=== PATIENT | female | born 1975 | race Caucasian/White ===

== ENCOUNTER 2018-02-21 14:21 | Emergency (ER) | payer OTHER ==
[~2018-02-21] VITALS: Ht 162.6 cm; Wt 72.6 kg
[~2018-02-21 14:21] MED LIST: IBUPROFEN600 MG ORAL; LISINOPRIL10 MG ORAL; METRONIDAZOLE500 MG PO; NKM; NORCO 5-325 TA1 EACH ORAL; TRAMADOL HCL50 MG ORAL; TRAZODONE HCL150 MG ORAL
[2018-02-21 14:43] VITALS: BP 135/86
--- NOTE | 2018-02-21 14:43 | Emergency Room Report ---
History of Present Illness General Chief Complaint: Abdominal Pain Source: Patient Present Illness HPI 42 yo female patient presents to ER complaining of crampy lower abdominal pain. Denies radiation of pain. Denies ; reports hx of two abortions at 18yo and 20yo. Denies recent sexual contact. Reports today is first day of menstrual cycle. Previous menstrual cycles normal for her, no excessive bleeding. Denies hx of STI. Reports previously seen by PCP for similar sx and had US performed 1 week ago; does not have followup appointment scheduled for results. Reports they found a pelvic mass on PE. Reports currently taking Ibuprofen today, last dosage this morning. Denies hematuria, dysuria, discharge. Denies fever, chest pain, SOB, calf pain, BRITO, vision changes, nausea, vomiting. Allergies: Coded Allergies: No Known Allergies (Unverified , 01/08/13) Patient History Past Medical History: see triage record Last Menstrual Period: 3-1 Now: No Reviewed Nursing Documentation: PMH: Agreed; PSxH: Agreed Nursing Documentation-PMH Past Medical History: No History, Except For Hx Hypertension: Yes Review of Systems All Other Systems: negative except mentioned in HPI Physical Exam Vital Signs Date Time Temp Pulse Resp B/P (MAP) Pulse Ox O2 Delivery O2 Flow Rate FiO2 02/21/18 14:33 98.5 72 18 135/86 98 Room Air 98.4 Sp02 EP Interpretation: reviewed, normal General Appearance: well appearing, no apparent distress, alert, GCS 15, non- toxic Head: normocephalic, atraumatic Eyes: bilateral eye normal inspection, bilateral eye PERRL ENT: hearing grossly normal, normal pharynx, no angioedema, normal voice, uvula midline, moist mucus membranes Neck: full range of motion Respiratory: lungs clear, normal breath sounds, no rhonchi, no respiratory distress, no accessory muscle use, no wheezing, speaking full sentences Cardiovascular #1: regular rate, rhythm, no edema Gastrointestinal: soft, no mass, non-distended, no guarding, no rebound, tenderness - suprapubic, RLQ, other - negative Rovsing, negative obturator, negative Olivo Genitourinary: no CVA tenderness, deferred Musculoskeletal: back normal, digits/nails normal, gait/station normal, normal range of motion, non-tender Neurologic: alert, oriented x3, responsive, motor strength/tone normal, sensory intact Psychiatric: mood/affect normal Skin: no rash Lymphatic: no adenopathy Medical Decision Making PA Attestation Dr. Dubose is my supervising Physician whom patient management has been discussed with. Diagnostic Impression: Primary Impression: Uterine fibroid Additional Impressions: Renal cyst Nabothian cyst ER Course Pt presents to ED c/o lower abdominal pain. DDX considered but are not limited to menstrual period, UTI, , ovarian cyst, torsion, appendicitis. PE: LLQ pain and suprapubic pain, no mass palpable. Will order imaging. Low suspicion for appendicitis, negative Rovsing, negative Obturator. Pelvic deferred. VITAL SIGNS are WNL, patient is afebrile Ordered CBC, CMP, Type and Screen, UA, UCG, bHCG, IV NS and pelvic and abdominal US. Pain medication. ER COURSE: Patient resting comfortably, in no acute distress, nontoxic appearing. Patient reports pain symptoms resolved since onset following administration of medication. CBC and CMP no elevation in WBC or LFTS, mild elevation of blood glucose, followup with PCP for further evaluation. Lipase WNL UA results no nitrites or leukocyte esterase, no UTI, microscopic hematuria present. Followup with PCP. Urine negative. BetaHCG 1, no . Rh antibody negative Blood type A+ Results discussed with patient. Informed patient to take Tylenol only for pain symptoms, do not take Motrin/ Ibuprofen if ever concerned for . US abdomen shows no acute disease, renal cyst incidental finding. US pelvis shows no acute disease, shows uterine fibroid, nabothian cyst, right paraovarian cyst, small cyst adjacent to left ovary, free fluid. Does not require immediate ER intervention at this time. Reports provided to patient. Discussed results with patient. Instructed to followup with OBGYN. F/u with OBGYN for further diagnosis, treatment and monitoring. DISCHARGE: -Rx provided for Tylenol for pain At this time pt. is stable for d/c to home. At this time patient is resting comfortably, in no acute distress, nontoxic appearing, smiling and talking without difficulty. Will provide printed patient care instructions, and any necessary prescriptions. Patient instructed to follow with OBGYN for further treatment and referral as needed. Care plan and follow up instructions have been discussed with the patient prior to discharge. Patient reports understanding and agreement to treatment plan. Patient questions asked and answered. ER precautions given, patient instructed to return to ER immediately for any new or worsening of symptoms. Labs Test 02/21/18 14:45 02/21/18 15:30 Urine Color Pale yellow Urine Appearance Clear Urine pH 6 (4.5-8.0) Urine Specific [place] 1.015 (1.005-1.035) Urine Protein Negative (NEGATIVE) Urine Glucose (UA) Negative (NEGATIVE) Urine Ketones Negative (NEGATIVE) Urine Occult Blood 3+ (NEGATIVE) Urine Nitrite Negative (NEGATIVE) Urine Bilirubin Negative (NEGATIVE) Urine Urobilinogen Normal MG/DL (0.0-1.0) Urine Leukocyte Esterase Negative (NEGATIVE) Urine RBC 2-4 /HPF (0 - 2) Urine WBC 0-2 /HPF (0 - 2) Urine Squamous Epithelial Cells Few /LPF (NONE/OCC) Urine Bacteria Few /HPF (NONE) Urine HCG, Qualitative Negative (NEGATIVE) White Blood Count 8.0 K/UL (4.8-10.8) Red Blood Count 4.30 M/UL (4.20-5.40) Hemoglobin 13.8 G/DL (12.0-16.0) Hematocrit 40.5 % (37.0-47.0) Mean Corpuscular Volume 94 FL (80-99) Mean Corpuscular Hemoglobin 32.1 PG (27.0-31.0) Mean Corpuscular Hemoglobin Concent 34.0 G/DL (32.0-36.0) Red Cell Distribution Width 11.7 % (11.6-14.8) Platelet Count 236 K/UL (150-450) Mean Platelet Volume 6.7 FL (6.5-10.1) Neutrophils (%) (Auto) 61.1 % (45.0-75.0) Lymphocytes (%) (Auto) 26.2 % (20.0-45.0) Monocytes (%) (Auto) 7.6 % (1.0-10.0) Eosinophils (%) (Auto) 4.2 % (0.0-3.0) Basophils (%) (Auto) 0.9 % (0.0-2.0) Sodium Level 139 MMOL/L (136-145) Potassium Level 4.2 MMOL/L (3.5-5.1) Chloride Level 104 MMOL/L (98-107) Carbon Dioxide Level 25 MMOL/L (21-32) Anion Gap 10 mmol/L (5-15) Blood Urea Nitrogen 22 mg/dL (7-18) Creatinine 0.9 MG/DL (0.55-1.30) Estimat Glomerular Filtration Rate > 60 mL/min (>60) Glucose Level 107 MG/DL (74-106) Calcium Level 8.6 MG/DL (8.5-10.1) Total Bilirubin 0.4 MG/DL (0.2-1.0) Aspartate Amino Transf (AST/SGOT) 25 U/L (15-37) Alanine Aminotransferase (ALT/SGPT) 28 U/L (12-78) Alkaline Phosphatase 50 U/L (46-116) Total Protein 7.2 G/DL (6.4-8.2) Albumin 3.6 G/DL (3.4-5.0) Globulin 3.6 g/dL Albumin/Globulin Ratio 1.0 (1.0-2.7) Lipase 164 U/L (73-393) Human Chorionic Gonadotropin, Quant 1 mIU/mL (1-6) CT/MRI/US Diagnostic Results CT/MRI/US Diagnostic Results #1: Imaging Test Ordered: Pelvic US Impression No acute abnormality Small uterine fundal fibroid Small amount free cul-de-sac fluid Cervical nabothian cysts Small right paraovarian cyst Small cyst adjacent to but not tangential to the left ovary, may be nongynecological in origin CT/MRI/US Diagnostic Results #2: Imaging Test Ordered: Abdominal US Impression Left renal cyst incidentally noted Negative for gallstones or dilated ducts Last Vital Signs Date Time Temp Pulse Resp B/P (MAP) Pulse Ox O2 Delivery O2 Flow Rate FiO2 02/21/18 14:33 98.5 72 18 135/86 98 Room Air 98.4 Disposition: HOME, SELF-CARE Condition: Stable Scripts Acetaminophen* (TYLENOL EXTRA STRENGTH*) 500 Mg Tablet 500 MG ORAL Q8H PRN for Prn Headache/Temp > 101, #30 TAB 0 Refills Prov: Bib Carey P.ABety 02/21/18 Patient Instructions: Ovarian Cyst, [id number], Renal Mass, Uterine Fibroids , [id number] Additional Instructions: Followup with OBGYN in 1-2 days. Need followup and monitoring for gynecological disorders. Take medications as directed. Take Tylenol for pain, do not take Ibuprofen. Patient questions asked and answered. ER precautions given, patient instructed to return to ER immediately for any new or worsening of symptoms including but not limited to chest pain, SOB, intractable vomiting, profuse vaginal bleeding, abdominal pain. Blood type A positive Rh anitbody negative Bib Carey Feb 21, 2018 14:43
[2018-02-21] MEDS ORDERED: Acetaminophen 500mg (ES) tab ORAL ONE (15:00)
[2018-02-21 15:31] LABS: APPEARANCE,URINE CLEAR; BILIRUBIN, URINE NEGATIVE (NEGATIVE); COLOR,URINE PALE YELLOW; GLUCOSE, URINE (UA) NEGATIVE (NEGATIVE); KETONES,URINE NEGATIVE (NEGATIVE); LEUKOCYTE ESTERASE ,URINE NEGATIVE (NEGATIVE); NITRITE,URINE NEGATIVE (NEGATIVE); PH,URINE 6 (4.5-8.0); PROTEIN,URINE NEGATIVE (NEGATIVE); UROBILINOGEN,URINE NORMAL MG/DL (0.0-1.0)
[2018-02-21 15:47] LABS: BASOPHILS % (AUTO) 0.9 % (0.0-2.0); EOSINOPHILS % (AUTO) 4.2 % (0.0-3.0); HEMATOCRIT 40.5 % (37.0-47.0); HEMOGLOBIN 13.8 G/DL (12.0-16.0); LYMPHOCYTES % (AUTO) 26.2 % (20.0-45.0); MEAN CORPUSCULAR VOLUME 94 FL (80-99); MONOCYTES % (AUTO) 7.6 % (1.0-10.0); NEUTROPHILS % (AUTO) 61.1 % (45.0-75.0); PLATELET COUNT 236 K/UL (150-450); RED CELL DISTRIBUTION WIDTH 11.7 % (11.6-14.8)
[2018-02-21 16:17] LABS: ANION GAP 10 mmol/L (5-15); BLOOD UREA NITROGEN 22 mg/dL (7-18); CALCIUM 8.6 MG/DL (8.5-10.1); CARBON DIOXIDE 25 MMOL/L (21-32); CHLORIDE 104 MMOL/L (98-107); CREATININE 0.9 MG/DL (0.55-1.30); POTASSIUM 4.2 MMOL/L (3.5-5.1); SODIUM 139 MMOL/L (136-145)
[2018-02-21 16:21] LABS: ALANINE AMINOTRANSFERASE 28 U/L (12-78); ALBUMIN 3.6 G/DL (3.4-5.0); ALKALINE PHOSPHATASE 50 U/L (46-116); ASPARTATE AMINO TRANSFERASE 25 U/L (15-37); BILIRUBIN,TOTAL 0.4 MG/DL (0.2-1.0)
[2018-02-21 16:59] VITALS: BP 129/84
--- NOTE | 2018-02-21 17:07 | Diagnostic Imaging Report ---
Indication: Pelvic pain, negative test Technique: Transabdominal and transvaginal images Comparison: 03/26/2016 Findings: Uterus measures 7.8 cm length by 4.1 cm AP. The endometrium measures 5 mm thick. It demonstrates some small calcification There is a small cervical nabothian cyst. There is a small amount of free cul-de-sac fluid. There is a 2.1 cm myometrial intramural fibroid. There is a small amount of free cul-de-sac fluid. The right ovary measures 3.5 cm in length. It demonstrates a 2.6 cm paraovarian cyst The left ovary measures 2.5 cm in length. A small cyst is seen near but not immediately tangential to the left ovary. Previously demonstrated complex right ovarian mass is no longer evident. Impression: No acute abnormality Small uterine fundal fibroid Small amount free cul-de-sac fluid Cervical nabothian cysts Small right paraovarian cyst Small cyst adjacent to but not tangential to the left ovary, may be nongynecological in origin
--- NOTE | 2018-02-21 17:09 | Diagnostic Imaging Report ---
Indication: Abdominal pain Technique: [place]-scale and duplex images of the upper abdomen were obtained Comparison: none Findings: Gallbladder is unremarkable, without stones, wall thickening, nor pericholecystic fluid. Sonographic Olivo's sign is negative. Common bile duct measures 4 mm in diameter. No intrahepatic biliary ductal dilatation. Liver demonstrates normal echogenicity, no focal abnormality. Portal vein and hepatic veins are patent. Pancreas is unremarkable. Spleen is unremarkable. Left kidney measures 10.9 cm in length. Right kidney measures 10.4 cm length. Both kidneys demonstrate normal echogenicity. There is no hydronephrosis. Left kidney contains a 14 mm lower pole cyst. . Non-aneurysmal abdominal aorta . Impression: Left renal cyst incidentally noted Negative for gallstones or dilated ducts
[2018-02-21] MEDS ORDERED: TYLENOL EXTRA500 MG ORAL (18:21)
[2018-02-21 18:30] VITALS: BP 129/84
== END 2018-02-21 18:56 | disposition home or self-care (01) ==
LOC: EMR 15:50
DX: D25.9 Leiomyoma of uterus, unspecified (principal); N88.8 Other specified noninflammatory disorders of cervix uteri; N28.1 Cyst of kidney, acquired; I10 Essential (primary) hypertension
CPT/HCPCS: 36415; 76700; 76830; 76856; 80053; 81003; 81025; 83690; 84702; 85025; 86850; 86900; 86901; 96374; 99284

== ENCOUNTER 2018-04-05 06:51 | Emergency (ER) | payer OTHER ==
[~2018-04-05] VITALS: Ht 162.6 cm; Wt 72.6 kg
[~2018-04-05 06:51] MED LIST changes: +TYLENOL EXTRA500 MG ORAL
[2018-04-05] MEDS ORDERED: PREDNISONE20 MG ORAL (07:07)
[2018-04-05] MEDS ORDERED: ZYRTEC10 MG ORAL (07:07)
[2018-04-05] MEDS ORDERED: BENADRYL25 MG ORAL (07:07)
[2018-04-05 07:37] VITALS: BP 143/94
--- NOTE | 2018-04-07 21:42 | Emergency Room Report ---
History of Present Illness General Chief Complaint: Skin Rash/Abscess Source: Patient Present Illness HPI Patient presents with complaints of rash involving the hands and upper arms Patient had a recent stay at a hotel Denies any pain with the rash denies any fevers or chills denies any chest pain or short of breath She has increased itching over the right hand Denies any new medications Allergies: Coded Allergies: No Known Allergies (Unverified , 01/08/13) Patient History Past Medical History: see triage record Pertinent Family History: none Last Menstrual Period: 03/20/18 Now: No : 2 Para: 0 Reviewed Nursing Documentation: PMH: Agreed; PSxH: Agreed Nursing Documentation-PMH Hx Hypertension: Yes Review of Systems All Other Systems: negative except mentioned in HPI Physical Exam Vital Signs Date Time Temp Pulse Resp B/P (MAP) Pulse Ox O2 Delivery O2 Flow Rate FiO2 04/05/18 06:53 98.1 81 14 143/94 97 Room Air 98.1 Sp02 EP Interpretation: reviewed, normal General Appearance: well appearing, no apparent distress Head: normocephalic, atraumatic Eyes: bilateral eye PERRL, bilateral eye EOMI ENT: normal pharynx Neck: normal inspection, supple Respiratory: chest non-tender, lungs clear Cardiovascular #1: regular rate, rhythm, no edema Gastrointestinal: soft, no mass Musculoskeletal: normal inspection Neurologic: alert, oriented x3, responsive, triage licensed practical nurse III-XII nml as tested Skin: other - Patient has areas of urticarial rash involving the hand also fingers mild erythematous base also rash involving the forearm, no obvious petechiae, no obvious target cell appearance, Lymphatic: no adenopathy Medical Decision Making Diagnostic Impression: Primary Impression: Rash and other nonspecific skin eruption Additional Impression: insect bite ER Course Patient appears to have several areas in line and consistent with likely insect bites There appears to be local reaction patient is placed on symptomatically medication And requires close outpatient follow-up Last Vital Signs Date Time Temp Pulse Resp B/P (MAP) Pulse Ox O2 Delivery O2 Flow Rate FiO2 04/05/18 07:37 98.1 14 143/94 97 Room Air 98.1 04/05/18 06:53 81 Status: improved Disposition: HOME, SELF-CARE Condition: Improved Scripts Cetirizine Hcl* (ZYRTEC*) 10 Mg Tablet 10 MG ORAL DAILY, #30 TAB 0 Refills Prov: Jamehdor,Ali DO 04/05/18 Diphenhydramine Hcl* (BENADRYL*) 25 Mg Capsule 25 MG ORAL Q6H PRN for Itching, #20 CAP Prov: Rashid Huggins DO 04/05/18 Prednisone* (PREDNISONE*) 20 Mg Tablet 20 MG ORAL BID, #10 TAB Prov: Rashid Huggins DO 04/05/18 Referrals: [facility]ERR[facility] (PCP) Patient Instructions: Rash, Insect Bite, [id number] Additional Instructions: Patient is provided with the discharge instructions notified to follow up with primary doctor in the next 2-3 days otherwise return to the er with any worsening symptoms. Please note that this report is being documented using Vendscreen technology. This can lead to erroneous entry secondary to incorrect interpretation by the dictating instrument. Rashid Huggins DO April 07, 2018 21:42
== END 2018-04-05 07:40 | disposition home or self-care (01) ==
LOC: EMR 07:16
DX: R21 Rash and other nonspecific skin eruption (principal); S60.562A Insect bite (nonvenomous) of left hand, initial encounter; W57.XXXA Bitten or stung by nonvenomous insect and other nonvenomous arthropods, initial encounter; Y92.9 Unspecified place or not applicable; I10 Essential (primary) hypertension
CPT/HCPCS: 99284; J7512

== ENCOUNTER 2019-08-10 11:45 | Emergency (ER) | payer OTHER ==
[~2019-08-10] VITALS: Ht 162.6 cm; Wt 68.0 kg
[~2019-08-10 11:45] MED LIST changes: +BENADRYL25 MG ORAL; +PREDNISONE20 MG ORAL; +ZYRTEC10 MG ORAL
[2019-08-10 12:20] VITALS: BP 131/89
--- NOTE | 2019-08-10 12:20 | NUR ---
ED Nurse Note: Patient walked in to ER from home due to Rt side of face swelling. Patient is alert and oriented x4 and ambulatory. Skin clean and intact. Calm and cooperative. No acute distress noted at this moment.
--- NOTE | 2019-08-10 12:41 | Emergency Room Report ---
History of Present Illness General Chief Complaint: Skin Rash/Abscess Source: Patient Present Illness HPI 44-year-old female with no significant past medical history is complaining of swelling and pain in the right side of her maxillary sinus few days. Patient reports that her brother and her nephew live with her also present with similar symptoms denies any recent travel. Patient was recently seen by her primary care physician and was tested for mono, strep, and complete blood work was done and all within normal limits. Patient is rating her pain 10 out of 10 reports that after taking ibuprofen 800 started feeling better. Patient has started amoxicillin few days ago. Denies any pus drainage from the mouth denies any recent dental work. Reports that he is up-to-date with his MMR vaccination. Denies chest pain, shortness of breath, palpitation, cough and congestion. Reports having low-grade fever few days ago. Swelling is noted in anterior auricular area presenting to possible mumps patient also reports radiating pain to the ear however no ear discharge. Allergies: Coded Allergies: No Known Allergies (Unverified , 01/08/13) Patient History Past Medical History: see triage record Past Surgical History: none Pertinent Family History: none Last Menstrual Period: 08/01/19 Now: No Immunizations: UTD Reviewed Nursing Documentation: PMH: Agreed; PSxH: Agreed Nursing Documentation-PMH Past Medical History: No History, Except For Hx Hypertension: Yes Review of Systems All Other Systems: negative except mentioned in HPI Physical Exam Vital Signs Date Time Temp Pulse Resp B/P (MAP) Pulse Ox O2 Delivery O2 Flow Rate FiO2 08/10/19 12:15 98.1 81 17 131/89 (103) 97 Room Air Sp02 EP Interpretation: reviewed, normal General Appearance: no apparent distress, alert, GCS 15, non-toxic Head: normocephalic, atraumatic Eyes: bilateral eye normal inspection, bilateral eye PERRL ENT: normal pharynx, no angioedema, normal voice, TMs + canals normal, uvula midline, moist mucus membranes, other - anterior auricular swelling on right side Neck: full range of motion, supple, supple/symm/no masses Respiratory: chest non-tender, lungs clear, normal breath sounds, speaking full sentences Cardiovascular #1: regular rate, rhythm, no edema, no murmur Gastrointestinal: normal bowel sounds, non tender, soft, non-distended, no guarding, no rebound Rectal: deferred Genitourinary: no CVA tenderness Musculoskeletal: normal inspection, back normal, digits/nails normal Neurologic: alert, oriented x3, responsive, motor strength/tone normal, sensory intact, speech normal Psychiatric: judgement/insight normal, memory normal, mood/affect normal, no suicidal/homicidal ideation Skin: no rash, warm/dry Lymphatic: adenopathy - anterior auricular on right side Medical Decision Making PA Attestation All diagnoses and treatment plans were reviewed and discussed with my supervising physician Dr. Lockett Diagnostic Impression: Primary Impression: Swollen lymph nodes ER Course 44-year-old female with no significant past medical history is complaining of swelling and pain in the right side of her maxillary sinus few days. Patient reports that her brother and her nephew live with her also present with similar symptoms denies any recent travel. Patient was recently seen by her primary care physician and was tested for mono, strep, and complete blood work was done and all within normal limits. Patient is rating her pain 10 out of 10 reports that after taking ibuprofen 800 started feeling better. Patient has started amoxicillin few days ago. Denies any pus drainage from the mouth denies any recent dental work. Reports that he is up-to-date with his MMR vaccination. Denies chest pain, shortness of breath, palpitation, cough and congestion. Reports having low-grade fever few days ago. Swelling is noted in anterior auricular area presenting to possible mumps patient also reports radiating pain to the ear however no ear discharge. Ddx considered but are not limited to : Cellulitis, dental abscess, sialoadenitis, mumps Vital signs: are WNL, pt. is afebrile H&PE are most consistent with:'s and swollen lymph node ORDERS: Prednisone ED INTERVENTIONS: Prednisone DISCHARGE: At this time pt. is stable for d/c to home. Will provide printed patient care instructions, and any necessary prescriptions. Care plan and follow up instructions have been discussed with the patient prior to discharge. Take medication as directed follow-up with your primary care provider I advised the patient to continue taking amoxicillin as well as ibuprofen 800 if worsening symptoms fever and chills return to the emergency room possibility of mumps discussed with patient Last Vital Signs Date Time Temp Pulse Resp B/P (MAP) Pulse Ox O2 Delivery O2 Flow Rate FiO2 08/10/19 12:15 98.1 81 17 131/89 103 97 Room Air Disposition: HOME, SELF-CARE Condition: Stable Scripts Prednisone* (PREDNISONE*) 20 Mg Tablet 20 MG ORAL BID for 5 Days, #10 TAB 0 Refills Prov: Liz Covarruibas 08/10/19 Patient Instructions: Lymphadenopathy Additional Instructions: Continue taking your antibiotics and your ibuprofen and start taking prednisone if worsening symptoms return to the emergency room have your primary care doctor test you for Mumps Liz Covarrubias Aug 10, 2019 12:41
[2019-08-10] MEDS ORDERED: PREDNISONE20 MG ORAL (12:43)
[2019-08-10 12:49] VITALS: BP 131/89
--- NOTE | 2019-08-10 12:50 | NUR ---
ED Nurse Note: Pt cleared by health care Provider for discharge. DC instructions/prescription was given and explained to pt and verbalized understanding of teachings. All medical deviecs such as ID band removed. Pt is AAO x4, ambulatory and left with all personal belongings.
== END 2019-08-10 12:51 | disposition home or self-care (01) ==
LOC: EMR 12:49
DX: R59.9 Enlarged lymph nodes, unspecified (principal); I10 Essential (primary) hypertension
CPT/HCPCS: J7512; Z7502; 99282

== ENCOUNTER 2020-07-02 10:32 | Emergency (ER) | payer SELFPAY ==
[~2020-07-02] VITALS: Ht 162.6 cm; Wt 65.8 kg
[2020-07-02 11:13] VITALS: BP 104/67
[2020-07-02] MEDS ORDERED: Morphine Sulfate 4mg/ml Inj (IV USE ONLY) IVP ONE ×2 (12:15→15:15)
[2020-07-02] MEDS ORDERED: Metoclopramide 10mg/2ml Inj IVP ONE (12:15)
[2020-07-02] MEDS ORDERED: Ketorolac 30mg Inj IV ONE (12:15)
[2020-07-02] MEDS ORDERED: DiphenhydrAMINE 50mg/ml Inj IVP ONE (12:15)
[2020-07-02 12:52] LABS: ANION GAP 8 mmol/L (5-15); BLOOD UREA NITROGEN 11 mg/dL (7-18); CALCIUM 9.2 MG/DL (8.5-10.1); CARBON DIOXIDE 27 MMOL/L (21-32); CHLORIDE 105 MMOL/L (98-107); CREATININE 0.9 MG/DL (0.55-1.30); POTASSIUM 4.2 MMOL/L (3.5-5.1); SODIUM 140 MMOL/L (136-145)
[2020-07-02 12:54] LABS: APPEARANCE,URINE SLIGHTLY CLOUDY; BILIRUBIN, URINE NEGATIVE (NEGATIVE); COLOR,URINE PALE YELLOW; GLUCOSE, URINE (UA) NEGATIVE (NEGATIVE); KETONES,URINE NEGATIVE (NEGATIVE); LEUKOCYTE ESTERASE ,URINE 2+ (NEGATIVE); NITRITE,URINE POSITIVE (NEGATIVE); PH,URINE 6 (4.5-8.0); PROTEIN,URINE NEGATIVE (NEGATIVE); UROBILINOGEN,URINE NORMAL MG/DL (0.0-1.0)
[2020-07-02 12:56] LABS: ALANINE AMINOTRANSFERASE 20 U/L (12-78); ALBUMIN 3.4 G/DL (3.4-5.0); ALBUMIN/GLOBULIN RATIO 0.9 (1.0-2.7); ALKALINE PHOSPHATASE 53 U/L (46-116); ASPARTATE AMINO TRANSFERASE 13 U/L (15-37); BILIRUBIN,TOTAL 0.3 MG/DL (0.2-1.0)
[2020-07-02 12:57] LABS: EOSINOPHILS % (AUTO) 1.7 % (0.0-3.0); HEMOGLOBIN 12.9 G/DL (12.0-16.0); LYMPHOCYTES % (AUTO) 9.2 % (20.0-45.0); MEAN CORPUSCULAR VOLUME 97 FL (80-99); MONOCYTES % (AUTO) 9.9 % (1.0-10.0); NEUTROPHILS % (AUTO) 78.3 % (45.0-75.0); PLATELET COUNT 259 K/UL (150-450); RED BLOOD COUNT 4.03 M/UL (4.20-5.40); RED CELL DISTRIBUTION WIDTH 11.7 % (11.6-14.8); WHITE BLOOD COUNT 10.1 K/UL (4.8-10.8)
[2020-07-02 12:58] LABS: INR 0.9 (0.9-1.1)
--- NOTE | 2020-07-02 13:53 | Diagnostic Imaging Report ---
EXAM: CT CT L Spine no Contrast CLINICAL HISTORY: Back pain. TECHNIQUE: Axial images obtained through the lumbar spine with subsequent sagittal and coronal reformat images. All CT scans at this facility are performed using dose modulation techniques as appropriate to a performed exam including the following: automated exposure control with adjustment of the mA and/or kV according to patient size. RADIATION DOSE: CTDIvol: 7.1 mGy DLP: 236 mGy-cm Dose information generated by the CT scanner is available in PACS. COMPARISON: None FINDINGS: There is anatomic alignment. Vertebral bodies are intact without compression deformity. There is no fracture, bony lesions or erosions. Mild disc space narrowing noted in the lower lumbar spine. Delineation of disc disease by CT is limited but there is no gross significant disc bulging or spinal canal stenosis definable by CT. Facet joints appear anatomic. There is no acute paraspinal soft tissue abnormality seen. IMPRESSION: NO ACUTE BONY ABNORMALITY DEMONSTRATED.
[2020-07-02] MEDS ORDERED: cefTRIAXone 1 GM in NS 55 ML IVPB ONE (15:00)
--- NOTE | 2020-07-02 15:05 | Emergency Room Report ---
History of Present Illness General Chief Complaint: Back Pain-No Injury Source: Patient Present Illness HPI Patient presents with severe lower back pain. It started over the weekend. She denies any known trauma. It started at a motel where she was staying with an ex-boyfriend. The pain is progressed and worsened. She has been taking Motrin 800 mg every 8 hours and states it has not helped. She feels tightness in her back. It does not radiate down her legs. She denies incontinence or perineal numbness. She is not taking blood thinners and has no oncologic problems. She denies fevers or chills. She denies dysuria or vaginal discharge. This is never happened to her before. She states that she has no history of traffic accidents in the past. Is a history of hypertension which is controlled on medications. Otherwise she denies medical problems. Her last menstrual period was mid month and was normal for her. The patient denies exposure to COVID-19. No sore throat, chest pain, palpitations, nausea, vomiting, diarrhea,abdominal pain, shortness of breath, rashes, depression, anxiety, visual changes, dizziness, headache. Allergies: Coded Allergies: No Known Allergies (Unverified , 01/08/13) COVID-19 Screening Contact w/high risk pt: No Experienced COVID-19 symptoms?: No COVID-19 Testing performed BUSINESS IMPROVEMENT MANAGER: No Patient History Social History: Reports: alcohol use, drug use - Tried edible; Denies: smoking Last Menstrual Period: 06/17/20 Reviewed Nursing Documentation: PMH: Agreed; PSxH: Agreed Nursing Documentation-PMH Past Medical History: No History, Except For Hx Hypertension: Yes Review of Systems All Other Systems: negative except mentioned in HPI Physical Exam Vital Signs Date Time Temp Pulse Resp B/P (MAP) Pulse Ox O2 Delivery O2 Flow Rate FiO2 07/02/20 11:13 99.3 103 18 104/67 99 Room Air Sp02 EP Interpretation: reviewed, normal General Appearance: well appearing, GCS 15, non-toxic, mild distress - In pain Head: normocephalic Eyes: bilateral eye normal inspection ENT: moist mucus membranes Neck: supple Respiratory: lungs clear, normal breath sounds Cardiovascular #1: regular rate, rhythm Cardiovascular #2: 2+ radial (R) Gastrointestinal: normal inspection, normal bowel sounds, non tender, no mass, non-distended Musculoskeletal: back normal, normal range of motion, gait/station normal, tender - Paraspinous muscles, other - Straight leg raise right with crossover pain in the lumbar area at 90degrees. Straight leg raise only with lumbar pain when knee is extended and paraspinous area no radiation down the leg Neurologic: alert, motor strength/tone normal, station repairer III-XII nml as tested, DTRs symmetric, oriented x3, sensory intact, cerebellar normal Psychiatric: mood/affect normal Skin: no rash, warm/dry, other - Tattoo lumbar area Medical Decision Making Diagnostic Impression: Primary Impression: Acute back pain Qualified Codes: M54.5 - Low back pain Additional Impression: UTI (urinary tract infection) Qualified Codes: N30.00 - Acute cystitis without hematuria ER Course Patient presents with nontraumatic lumbar pain and is severe. Differential includes degenerative disc disease, lumbar sprain, muscle spasm, urinary tract infection amongst others. Evaluation with labs, CT lumbar area and urinalysis. Treatment with Reglan, Benadryl and morphine along with Toradol. Although there are no red flag symptoms and signs CT is indicated at this is new onset and severe pain. CT lumbar spine normal. Labs unremarkable except for pyuria with nitrites. Pain now 6/10, better. Repeat morphine. Also Rocephin ordered for UTI. Morphine repeated 1 last time. Pain improved and patient ambulatory. Discussed results with patient and treatment plan. Patient improved and stable for outpatient observation and treatment. Laboratory Tests Test 07/02/20 12:15 White Blood Count 10.1 K/UL (4.8-10.8) Red Blood Count 4.03 M/UL (4.20-5.40) L Hemoglobin 12.9 G/DL (12.0-16.0) Hematocrit 39.0 % (37.0-47.0) Mean Corpuscular Volume 97 FL (80-99) Mean Corpuscular Hemoglobin 32.0 PG (27.0-31.0) H Mean Corpuscular Hemoglobin Concent 33.1 G/DL (32.0-36.0) Red Cell Distribution Width 11.7 % (11.6-14.8) Platelet Count 259 K/UL (150-450) Mean Platelet Volume 6.1 FL (6.5-10.1) L Neutrophils (%) (Auto) 78.3 % (45.0-75.0) H Lymphocytes (%) (Auto) 9.2 % (20.0-45.0) L Monocytes (%) (Auto) 9.9 % (1.0-10.0) Eosinophils (%) (Auto) 1.7 % (0.0-3.0) Basophils (%) (Auto) 1.0 % (0.0-2.0) Prothrombin Time 10.1 SEC (9.30-11.50) Prothrombin Time INR 0.9 (0.9-1.1) Activated Partial Thromboplast Time 26 SEC (23-33) Urine Color Pale yellow Urine Appearance Slightly cloudy Urine pH 6 (4.5-8.0) Urine Specific [place] 1.020 (1.005-1.035) Urine Protein Negative (NEGATIVE) Urine Glucose (UA) Negative (NEGATIVE) Urine Ketones Negative (NEGATIVE) Urine Blood 3+ (NEGATIVE) H Urine Nitrite Positive (NEGATIVE) H Urine Bilirubin Negative (NEGATIVE) Urine Urobilinogen Normal MG/DL (0.0-1.0) Urine Leukocyte Esterase 2+ (NEGATIVE) H Urine RBC 2-4 /HPF (0 - 2) H Urine WBC 10-15 /HPF (0 - 2) H Urine Squamous Epithelial Cells Few /LPF (NONE/OCC) Urine Bacteria Moderate /HPF (NONE) H Urine HCG, Qualitative Negative (NEGATIVE) Sodium Level 140 MMOL/L (136-145) Potassium Level 4.2 MMOL/L (3.5-5.1) Chloride Level 105 MMOL/L (98-107) Carbon Dioxide Level 27 MMOL/L (21-32) Anion Gap 8 mmol/L (5-15) Blood Urea Nitrogen 11 mg/dL (7-18) Creatinine 0.9 MG/DL (0.55-1.30) Estimated Glomerular Filtration Rate > 60 mL/min (>60) Glucose Level 116 MG/DL (74-106) H Calcium Level 9.2 MG/DL (8.5-10.1) Total Bilirubin 0.3 MG/DL (0.2-1.0) Aspartate Amino Transferase (AST) 13 U/L (15-37) L Alanine Aminotransferase (ALT) 20 U/L (12-78) Alkaline Phosphatase 53 U/L (46-116) Total Protein 7.2 G/DL (6.4-8.2) Albumin 3.4 G/DL (3.4-5.0) Globulin 3.8 g/dL Albumin/Globulin Ratio 0.9 (1.0-2.7) L CT/MRI/US Diagnostic Results CT/MRI/US Diagnostic Results : Imaging Test Ordered: Lumbar spine Impression No acute abnormality noted Last Vital Signs Date Time Temp Pulse Resp B/P (MAP) Pulse Ox O2 Delivery O2 Flow Rate FiO2 07/02/20 16:42 98.3 75 15 106/75 100 Room Air Status: improved Disposition: HOME, SELF-CARE Condition: Improved Scripts Nitrofurantoin Monohyd/M-Cryst* (MACROBID 100 MG*) 100 Mg Capsule 100 MG ORAL EVERY 12 HOURS, #14 CAP Prov: Alli Soria MD 07/02/20 Methocarbamol* (ROBAXIN-500*) 500 Mg Tablet 500 MG ORAL TID PRN for muscle spasms, #10 TAB 0 Refills Prov: Alli Soria MD 07/02/20 Ibuprofen* (MOTRIN*) 600 Mg Tablet 600 MG ORAL Q6H PRN for FOR PAIN, #20 TAB 0 Refills Prov: Alli Soria MD 07/02/20 Tramadol Hcl* (ULTRAM*) 50 Mg Tablet 50 MG ORAL Q6H PRN for For Pain, #10 TAB 0 Refills Prov: Alli Soria MD 07/02/20 Referrals: NOT CHOSEN IPA/,REFERRING (PCP) Alli Soria MD Jul 02, 2020 15:05
[2020-07-02 15:20] VITALS: BP 97/54
[2020-07-02] MEDS ORDERED: IBUPROFEN600 M1 ORAL (15:20)
[2020-07-02] MEDS ORDERED: TRAMADOL HCL50 MG ORAL (15:20)
[2020-07-02] MEDS ORDERED: ROBAXIN-500MG ORAL (15:20)
[2020-07-02] MEDS ORDERED: NITROFURANTOIN100 M2 ORAL (16:21)
[2020-07-02 16:42] VITALS: BP 106/75
== END 2020-07-02 16:42 | disposition home or self-care (01) ==
LOC: EMR 12:28
DX: M54.5 Low back pain (principal); N30.00 Acute cystitis without hematuria; I10 Essential (primary) hypertension; Z79.899 Other long term (current) drug therapy
CPT/HCPCS: 36415; 72131; 80053; 81001; 81025; 85025; 85610; 85730; 87086; 96365; 96375; 96376; 99284; J0696; J1200; J1885; J2270; J2765